=== PATIENT | male | born 1995 | race African-American/Black ===

== ENCOUNTER 2017-03-06 09:29 | Emergency (ER) | payer BC, MEDICAID ==
[2017-03-06 10:08] LABS: ABS Basophils 0.1 10^3/ul (0-0.2); ABS Eosinophils 0.1 10^3/ul (0-0.6); ABS Lymphocytes 3.5 10^3/ul (1.0-4.8); ABS Neutrophils 3.8 10^3/ul (1.5-7.7); ABS Nucleated RBC 0 10^3/ul; Eosinophil % 0.7 % (0-6); Hematocrit 42 % (42-52); Hemoglobin 14.7 g/dl (14.0-18.0); Lymphocyte % 41.7 % (25-47); Mean Corpuscular HGB Conc 35 g/dl (31-36); Mean Corpuscular Hemoglobin 32 pg (27-31); Mean Corpuscular Volume 91 fL (80-94); Mean Platelet Volume 9 um3 (7.4-10.4); Nucleated Red Blood Cells % 0.1; Platelet Count 271 10^3/ul (150-450); Red Blood Count 4.65 10^6/ul (4.0-5.4); Red Cell Distribution Width 12 % (10.5-15); White Blood Count 8.4 10^3/ul (3.5-10.8)
[2017-03-06 10:19] LABS: EGFR Non-African American 114.3 (>60)
[2017-03-06] MEDS ORDERED: Tenofovir/Emtricitabine(*) TAB PO ONE ×4 (10:51→10:56)
[2017-03-06] MEDS ORDERED: Raltegravir* 400 MG TAB PO ONE ×3 (10:53→10:58)
[2017-03-06 11:18] VITALS: BP 137/89
--- NOTE | 2017-03-06 16:53 | ED ---
Complex/Multi-Sys Presentation - HPI Summary HPI Summary: Patient presents to the ED with concern for HIV. He notes he had unprotected intercourse with a HIV + male early this morning around 4am. He states afterwards of which, the other individual stated he was HIV+. This was not to the knowledge of the patient previously. Denies any other complaints and is not c/o pain or penile discharge. There have been previous concerns for STD's and treated last year. He is concerned for std's of this date as well. Denies SOb, chest discomfort, N/V/C/D. Denies fevers, sweats or chills. Patient is otherwise healthy and takes no medications, has no allergies. He is requesting prophylaxis. - History Of Current Complaint Chief Complaint: EDGeneral Time Seen by Provider: 03/06/17 09:37 Hx Obtained From: Patient Onset/Duration: Sudden Onset Severity Currently: None Location: Negative - Allergies/Home Medications Allergies/Adverse Reactions: Allergies Allergy/AdvReac Type Severity Reaction Status Date / Time No Known Allergies Allergy Verified 12/25/15 15:17 PMH/Surg Hx/FS Hx/Imm Hx Previously Healthy: Yes - Cancer History Hx Radiation Therapy: No Hx Palliative Cancer Treatment: No - Surgical History Hx Anesthesia Reactions: No - Immunization History Hx Pertussis Vaccination: No Immunizations Up to Date: Unable to Obtain/Confirm Infectious Disease History: No Infectious Disease History: Denies: Traveled Outside the [place] in Last 30 Days - Family History Known Family History: Positive: Hypertension - Social History Occupation: Unemployed Lives: With Family Alcohol Use: Rare Hx Substance Use: No Substance Use Type: Reports: None Hx Tobacco Use: No Smoking Status (MU): Never Smoked Tobacco Review of Systems Constitutional: Negative Negative: Fever, Chills, Fatigue Eyes: Negative Cardiovascular: Negative Respiratory: Negative Gastrointestinal: Negative Positive: no symptoms reported, see HPI. Negative: burning, dysuria, discharge , frequency, incontinence, urgency Musculoskeletal: Negative Neurological: Negative All Other Systems Reviewed And Are Negative: Yes Physical Exam Triage Information Reviewed: Yes Vital Signs On Initial Exam: Initial Vitals Temp Pulse Resp BP Pulse Ox 98.0 F 88 16 149/90 100 03/06/17 09:30 03/06/17 09:30 03/06/17 09:30 03/06/17 09:30 03/06/17 09:30 Vital Signs Reviewed: Yes Appearance: Positive: No Pain Distress, Well-Nourished Skin: Positive: Warm, Skin Color Reflects Adequate Perfusion Head/Face: Positive: Normal Head/Face Inspection Eyes: Positive: EOMI, GENA, Conjunctiva Clear Neck: Positive: Supple, No Lymphadenopathy Respiratory/Lung Sounds: Positive: Clear to Auscultation, Breath Sounds Present Cardiovascular: Positive: Normal, RRR, Pulses are Symmetrical in both Upper and Lower Extremities Bowel Sounds: Positive: Present Neurological: Positive: Sensory/Motor Intact, Alert, Oriented to Person Place, Time Psychiatric: Positive: Normal, Affect/Mood Appropriate AVPU Assessment: Alert - Lilia Coma Scale Coma Scale Total: 15 Diagnostics - Vital Signs Vital Signs Temp Pulse Resp BP Pulse Ox 03/06/17 11:17 98.1 F 82 18 137/89 100 03/06/17 09:30 98.0 F 88 16 149/90 100 - Laboratory Lab Results: Lab Results 03/06/17 03/06/17 03/06/17 Range/Units 09:52 09:52 09:52 WBC 8.4 (3.5-10.8) 10^3/ul RBC 4.65 (4.0-5.4) 10^6/ul Hgb 14.7 (14.0-18.0) g/dl Hct 42 (42-52) % MCV 91 (80-94) fL MCH 32 H (27-31) pg MCHC 35 (31-36) g/dl RDW 12 (10.5-15) % Plt Count 271 (150-450) 10^3/ul MPV 9 (7.4-10.4) um3 Neut % (Auto) 45.0 (38-83) % Lymph % (Auto) 41.7 (25-47) % [place] % (Auto) 11.8 H (1-9) % Eos % (Auto) 0.7 (0-6) % Baso % (Auto) 0.8 (0-2) % Absolute Neuts (auto) 3.8 (1.5-7.7) 10^3/ul Absolute Lymphs (auto) 3.5 (1.0-4.8) 10^3/ul Absolute Monos (auto) 1.0 H (0-0.8) 10^3/ul Absolute Eos (auto) 0.1 (0-0.6) 10^3/ul Absolute Basos (auto) 0.1 (0-0.2) 10^3/ul Absolute Nucleated RBC 0 10^3/ul Nucleated RBC % 0.1 Sodium 136 (133-145) mmol/L Potassium 3.5 (3.5-5.0) mmol/L Chloride 102 (101-111) mmol/L Carbon Dioxide 27 (22-32) mmol/L Anion Gap 7 (2-11) mmol/L BUN 10 (6-24) mg/dL Creatinine 0.84 (0.67-1.17) mg/dL Est GFR ( Amer) 146.9 (>60) Est GFR (Non-Af Amer) 114.3 (>60) BUN/Creatinine Ratio 11.9 (8-20) Glucose 85 (70-100) mg/dL Calcium 9.3 (8.6-10.3) mg/dL Total Bilirubin 1.00 (0.2-1.0) mg/dL AST 34 (13-39) U/L ALT 39 (7-52) U/L Alkaline Phosphatase 83 (34-104) U/L Total Protein 7.7 (6.4-8.9) g/dL Albumin 4.2 (3.2-5.2) g/dL Globulin 3.5 (2-4) g/dL Albumin/Globulin Ratio 1.2 (1-3) Syphilis IgG Antibody Nonreactive (Nonreactive) Hepatitis B Antibody Nonreactive (Nonreactive) Hep Bs Antigen Reactive (prelim) H (Nonreactive) Hep Bs Antibody, Quant 3.48 (<12) mIU/mL Hepatitis C Antibody Nonreactive (Nonreactive) HIV 1&2 Antibody Nonreactive (Nonreactive) Result Diagrams: 03/06/17 09:52 03/06/17 09:52 Lab Statement: Any lab studies that have been ordered have been reviewed, and results considered in the medical decision making process. Complex Multi-Symp Course/Dx Course Of Treatment: Patient requests testing and anitviral prophylaxis after sexual intercourse with HIV + individual occurring 4 hours prior to arrival. Discussed treatment options. Discussed at length HIV prophylaxis and side effects, etc. Patient prefers prophylaxis and signs appropriate documentation. HIV, GC/Chlamydia, syphilis, hep b, hep obtained. CBC and CMP obtained and WNL with appropriate liver functions to give truvada and isentress based on clinical consultation centers PEP guidelines. He is given 7 day supply of both medications including the first doses of both in the ED. He is to follow up with Dr. Beckham in 3 weeks and referral is given. He is Ok with discharge and understands return precautions. Will call with other results of any + tests. - Diagnoses Provider Diagnoses: Encounter for HIV (human immunodeficiency virus) test Discharge - Discharge Plan Condition: Stable Disposition: HOME Patient Education Materials: Postexposure Prophylaxis (ED), HIV Infection (ED) Referrals: Georgina SILVER,Pepe Rodriguez [Medical Doctor] - No Primary Care Phys,NOPCP [Primary Care Provider] - Additional Instructions: Please follow up with Dr. Beckham in 3 weeks
== END 2017-03-06 11:17 | disposition home or self-care (01) ==
LOC: ED 09:29
DX: Z20.6 Contact with and (suspected) exposure to human immunodeficiency virus [HIV] (principal)
CPT/HCPCS: 36415; 80053; 85025; 86592; 86703; 86706; 86803; 87340; 87491; 87591; 99282

== ENCOUNTER 2017-07-04 11:25 | Emergency (ER) | payer BC, MEDICAID ==
[2017-07-04 12:47] VITALS: BP 142/81
--- NOTE | 2017-07-04 13:11 | UC ---
General HPI - HPI Summary HPI Summary: Pt presents stating feels chicken bone caught in esophagus. Pt states was eating chicken breast approx 3am and felt "it get stuck. pt has had previously but has always resolved. pt denies drooling, States feels it with breathing. Pt has vomited x 2 without relief. Pt had water and bread without relief. Pt without other complaints Pt's medications reviewed this visit - History of Current Complaint Chief Complaint: UCGeneralIllness Stated Complaint: THROAT COMPLAINT Time Seen by Provider: 07/04/17 12:54 Pain Intensity: 6 - Allergy/Home Medications Allergies/Adverse Reactions: Allergies Allergy/AdvReac Type Severity Reaction Status Date / Time No Known Allergies Allergy Verified 12/25/15 15:17 Home Medications: Home Medications NK [No Home Medications Reported] 07/04/17 [History Confirmed 07/04/17] PMH/Surg Hx/FS Hx/Imm Hx Previously Healthy: Yes - Surgical History Surgical History: None - Family History Known Family History: Positive: Hypertension, Diabetes - Social History Occupation: Employed Full-time Lives: With Family Alcohol Use: Rare Substance Use Type: None Smoking Status (MU): Never Smoked Tobacco Review of Systems Constitutional: Negative Skin: Negative Gastrointestinal: Other - sense esophageal FB All Other Systems Reviewed And Are Negative: Yes Physical Exam Triage Information Reviewed: Yes Appearance: Well-Appearing, No Pain Distress, Well-Nourished Vital Signs: Initial Vital Signs Temp 98.5 F 07/04/17 12:40 Pulse 74 07/04/17 12:40 Resp 21 07/04/17 12:40 BP 142/81 07/04/17 12:40 Pulse Ox 100 07/04/17 12:40 Vital Signs Reviewed: Yes Eye Exam: Normal Eyes: Positive: Conjunctiva Clear ENT: Positive: Pharynx normal, TMs normal, Other - Pt with mild discomfort with swallowing. No drooling, no posturing Dental Exam: Normal Neck exam: Normal Neck: Positive: Supple, Nontender, No Lymphadenopathy Respiratory Exam: Normal Respiratory: Positive: Chest non-tender, Lungs clear, Normal breath sounds, No respiratory distress, No accessory muscle use Cardiovascular Exam: Normal Cardiovascular: Positive: RRR, No Murmur, Pulses Normal Abdominal Exam: Normal Abdomen Description: Positive: Nontender, No Organomegaly, Soft Bowel Sounds: Positive: Present Musculoskeletal Exam: Normal Neurological Exam: Normal Neurological: Positive: Alert Psychological Exam: Normal Skin Exam: Normal Course/Dx - Course Course Of Treatment: Pt with discomfort swallowing. states felt chicken bone get lodge 3am today. Pt with pain with swallowing. no drooling. States feels with breathing, not SOB. d/w pt - will refer to ED for further eval. pt in agreement with plan. sple with ED at [facility] - pt prefereance - agreeable to pt, + GI information technology coordinator. pt to remain NPO - will self drive. Pt's BP mild elevated. pt uncomfortable. recommend f.u with pcp - Differential Dx - Multi-Symptom Provider Diagnoses: esophageal foreign body sensation without airway compromise Discharge - Sign-Out/Discharge Documenting (check all that apply): Discharge/Admit/Transfer - Discharge Plan Condition: Stable Disposition: HOME Patient Education Materials: Esophageal Foreign Body (ED) Referrals: No Primary Care Phys,NOPCP [Primary Care Provider] - Additional Instructions: The doctor that evaluated you at the urgent care center recommends you go to the emergency department for further evaluation of your medical condition. Do NOT eat or drink anything before you are evaluated at the emergency department. If your symptoms change, snout puller and call 911 for assistance - Billing Disposition and Condition Condition: STABLE Disposition: HOME
== END 2017-07-04 13:12 | disposition home or self-care (01) ==
LOC: UCCORT 11:25
DX: R09.89 Other specified symptoms and signs involving the circulatory and respiratory systems (principal)
CPT/HCPCS: 99212; G0463

== ENCOUNTER 2018-03-15 09:41 | Emergency (ER) | payer BC, MEDICAID ==
--- NOTE | 2018-03-15 09:57 | UC ---
Complaint Male HPI - HPI Summary HPI Summary: 22 yo male presents with burning during urination. He tells me that he has been sexually active with new male partners recently without the use of protective methods. He is currently being treated with truvada and undergoing blood draws for HIV and other STDs due to a previous potential exposure. He last had intercourse about 2 weeks ago and over the last 4-5 days has noticed burning during urination. That partner has not contacted pt to say they have any dz. Pt has had gonorrhea in the past and says that this feels similar. Denies fever, chills, abdominal pain, n/v, hematuria, lesions, testicular pain. - History of Current Complaint Stated Complaint: PERSONAL Time Seen by Provider: 03/15/18 09:57 Hx Obtained From: Patient Onset/Duration: Gradual Onset Severity Initially: Mild Severity Currently: Mild Pain Intensity: 1 Pain Scale Used: 0-10 Numeric - Allergies/Home Medications Allergies/Adverse Reactions: Allergies Allergy/AdvReac Type Severity Reaction Status Date / Time No Known Allergies Allergy Verified 12/25/15 15:17 Home Medications: Home Medications Emtricitabine/Tenofovir (Tdf) [Truvada 200-300 mg] 1 tab PO DAILY 03/15/18 [ History Confirmed 03/15/18] PMH/Surg Hx/FS Hx/Imm Hx - Additional Past Medical History Additional PMH: None - Surgical History Surgical History: None - Family History Known Family History: Positive: Hypertension, Diabetes - Social History Occupation: Student Lives: With Family Alcohol Use: Rare Substance Use Type: None Smoking Status (MU): Never Smoked Tobacco Review of Systems All Other Systems Reviewed And Are Negative: Yes Constitutional: Positive: Negative Skin: Positive: Negative Respiratory: Positive: Negative Cardiovascular: Positive: Negative Genitourinary: Positive: Vaginal/Penile Burning. Negative: Vaginal/Penile Discharge, Vaginal/Penile Pain, Ulceration/Lesion Neurological: Positive: Negative Psychological: Positive: Negative Physical Exam - Summary Physical Exam Summary: GENERAL: NAD. WDWN. No pain distress. SKIN: No rashes, sores, lesions, or open wounds. NECK: Supple. Nontender. No lymphadenopathy. CHEST: No accessory muscle use. Breathing comfortably and in no distress. CV: Pulses intact. Cap refill <2seconds ABDOMEN: Soft. NTTP. No CVA tenderness. Bowel sounds present NEURO: Alert. PSYCH: Age appropriate behavior. Triage Information Reviewed: Yes Vital Signs: Vital Signs: Temp Pulse Resp BP Pulse Ox 98.1 F 92 18 137/76 99 03/15/18 10:11 03/15/18 10:11 03/15/18 10:11 03/15/18 10:11 03/15/18 10:11 Vital Signs Reviewed: Yes Complaint Male Course/Dx - Course Course Of Treatment: Pt declined genital exam as he is only having burning with urination. Urine will be sent for GC/C. He was treated with ceftriaxone and azithromycin today. - Differential Dx/Diagnosis Provider Diagnosis: Burning with urination Discharge - Sign-Out/Discharge Documenting (check all that apply): Patient Departure All imaging exams completed and their final reports reviewed: No Studies - Discharge Plan Condition: Stable Disposition: HOME Patient Education Materials: Chlamydia (ED), Sexually Transmitted Diseases (ED) , Gonorrhea (ED) Referrals: No Primary Care Phys,NOPCP [Primary Care Provider] - Additional Instructions: If you develop a fever, shortness of breath, chest pain, new or worsening symptoms - please call your PCP or go to the ED. Your results should be back in 1-3 days, please call to ask if you have not heard from us. You were treated for Gonorrhea and Chlamydia today. - Billing Disposition and Condition Condition: STABLE Disposition: Home - Attestation Statements Provider Attestation: I was available for consult. This patient was seen by the [facility]. The patient was not presented to, seen by, or examined by me. -Jairo
[2018-03-15 10:18] VITALS: BP 137/76
[2018-03-15] MEDS ORDERED: Lidocaine 1%* 5 ML VIAL INJ ONE (10:38)
[2018-03-15] MEDS ORDERED: cefTRIAXone VIAL(*) 250 MG VIAL IM ONE (10:38)
[2018-03-15] MEDS ORDERED: Azithromycin TAB* 250 MG PO ONE (10:38)
== END 2018-03-15 11:02 | disposition home or self-care (01) ==
LOC: UCEAST 09:41
DX: R30.9 Painful micturition, unspecified (principal)
CPT/HCPCS: 87491; 87591; 96372; 99211; A9270-GY; G0463; J0696

== ENCOUNTER 2018-10-31 13:21 | Emergency (ER) | payer BC, MEDICAID ==
[2018-10-31 13:29] VITALS: BP 147/70
--- NOTE | 2018-10-31 13:30 | UC ---
Complaint Male HPI - HPI Summary HPI Summary: 23 yo male presents requesting STD testing. He states that he has no symptoms, but just wants to get "checked" as it has been about 6 months and he has been sexually active. Denies fevers, chills, weight loss, abdominal pain, dysuria, penile drainage, genital lesions, testicular pain. - History of Current Complaint Chief Complaint: UCSTDScreening Stated Complaint: STD TESTING Time Seen by Provider: 10/31/18 13:29 Hx Obtained From: Patient Severity Currently: None Pain Intensity: 0 - Allergies/Home Medications Allergies/Adverse Reactions: Allergies Allergy/AdvReac Type Severity Reaction Status Date / Time No Known Allergies Allergy Verified 10/31/18 13:29 PMH/Surg Hx/FS Hx/Imm Hx - Additional Past Medical History Additional PMH: None - Surgical History Surgical History: None - Family History Known Family History: Positive: Hypertension, Diabetes - Social History Lives: With Family Alcohol Use: Rare Substance Use Type: None Smoking Status (MU): Never Smoked Tobacco - Immunization History Most Recent Tetanus Shot: unsure Review of Systems All Other Systems Reviewed And Are Negative: No Constitutional: Positive: Negative Skin: Positive: Negative Respiratory: Positive: Negative Cardiovascular: Positive: Negative Gastrointestinal: Positive: Negative Genitourinary: Positive: Negative Neurological: Positive: Negative Psychological: Positive: Negative Physical Exam - Summary Physical Exam Summary: GENERAL: NAD. WDWN. No pain distress. SKIN: No rashes, opens wounds, or sores. NECK: Supple. Nontender. No lymphadenopathy. CHEST: No accessory muscle use. Breathing comfortably and in no distress. CV: Pulses intact. Cap refill <2seconds NEURO: Alert. PSYCH: Age appropriate behavior. Triage Information Reviewed: Yes Vital Signs: Initial Vital Signs Temp 98 F 10/31/18 13:27 Pulse 86 10/31/18 13:27 Resp 16 10/31/18 13:27 BP 147/70 10/31/18 13:27 Pulse Ox 100 10/31/18 13:27 Vital Signs Reviewed: Yes Complaint Male Course/Dx - Course Course Of Treatment: He declined genital exam today as he is having no symptoms. GC/C urine will be sent. Labs for HIV, Herpes, RPR, and hepatitis drawn today and will f/u with results and treat as indicated. - Differential Dx/Diagnosis Provider Diagnosis: Screen for STD (sexually transmitted disease) Discharge ED - Sign-Out/Discharge Documenting (check all that apply): Patient Departure All imaging exams completed and their final reports reviewed: No Studies - Discharge Plan Condition: Stable Disposition: HOME Patient Education Materials: Sexually Transmitted Diseases (ED) Referrals: No Primary Care Phys,NOPCP [Primary Care Provider] - Additional Instructions: If you develop a fever, shortness of breath, chest pain, new or worsening symptoms - please call your PCP or go to the ED immediately. Your blood pressure was slightly elevated at todays visit. Please see your primary provider within 4 weeks for recheck and re-evaluation. Your results should be back in 2-3 days - please call to ask about your results if you have not heard from our clinic. - Billing Disposition and Condition Condition: STABLE Disposition: Home - Attestation Statements Provider Attestation: Per institutional requirements, I have reviewed the chart, however, I was not consulted specifically or made aware of this patient by the midlevel provider. I did not personally evaluate, interact with , or disposition this patient.
[2018-10-31 18:48] LABS: Hepatitis B Surface Antigen Negative (Negative)
[2018-10-31 19:05] LABS: Hepatitis C Antibody Negative (Negative)
[2018-10-31 19:08] LABS: HIV 4th Generation Nonreactive (Nonreactive)
[2018-11-01 13:07] LABS: Chlamydia trachomatis NAA Negative (Negative); Neisseria gonorrhoeae (GC) NAA Negative (Negative)
[2018-11-02 10:51] LABS: Herpes Simplex Virus I IgG AB Positive (Negative); Herpes Simplex Virus II IgG AB Negative (Negative)
--- NOTE | 2018-11-03 07:35 | UC ---
- Progress Note Progress Note: HSV results come back from October 31, 2018. 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 HSV 2 IgG was negative. All the rest of the labs that were done were negative. Nursing to call patient inform the patient of the results and to follow-up with primary care physician as a any outbreaks of HSV-1 there is medical treatment available. Course/Dx - Diagnoses Provider Diagnoses: Screen for STD (sexually transmitted disease) Discharge ED - Sign-Out/Discharge Documenting (check all that apply): Patient Departure All imaging exams completed and their final reports reviewed: No Studies - Discharge Plan Condition: Stable Disposition: HOME Patient Education Materials: Sexually Transmitted Diseases (ED) Referrals: No Primary Care Phys,NOPCP [Primary Care Provider] - Additional Instructions: If you develop a fever, shortness of breath, chest pain, new or worsening symptoms - please call your PCP or go to the ED immediately. Your blood pressure was slightly elevated at todays visit. Please see your primary provider within 4 weeks for recheck and re-evaluation. Your results should be back in 2-3 days - please call to ask about your results if you have not heard from our clinic. - Billing Disposition and Condition Condition: STABLE Disposition: Home
== END 2018-10-31 13:54 | disposition home or self-care (01) ==
LOC: UCEAST 13:21
DX: Z20.2 Contact with and (suspected) exposure to infections with a predominantly sexual mode of transmission (principal)
CPT/HCPCS: 36415; 80074; 86695; 86696; 86780; 87389; 87491; 87591; 99211; G0463

== ENCOUNTER 2019-05-23 11:51 | Emergency (ER) | payer BC, MEDICAID ==
[2019-05-23 13:03] VITALS: BP 135/91
--- NOTE | 2019-05-23 13:11 | UC ---
General HPI - HPI Summary HPI Summary: PATIENT ARRIVES REQUESTING ROUTINE STD TESTING. HE DENIES ANY SYMPTOMS. NO PENILE DISCHARGE, NO ABDOMINAL PAIN, NO NAUSEA, NO FEVER, NO URINARY SYMPTOMS. PATIENT HAS SEX WITH MEN AND IS ON TRUVADA FOR PREP. HE STATES HE HAS HAD UNPROTECTED SEX WITH ONE MALE PARTNER, MOST RECENTLY ABOUT 2 MONTHS AGO. STATES HE LIKES TO GET CHECKED EVERY 6 MONTHS OR SO. - History of Current Complaint Chief Complaint: UCSTDScreening Stated Complaint: PERSONAL Time Seen by Provider: 05/23/19 12:27 Hx Obtained From: Patient Current Severity: None Pain Intensity: 0 Associated Signs & Symptoms: Negative: Abdominal Pain, Dysuria, Fever, Nausea - Allergy/Home Medications Allergies/Adverse Reactions: Allergies Allergy/AdvReac Type Severity Reaction Status Date / Time No Known Allergies Allergy Verified 05/23/19 12:38 Home Medications: Home Medications Emtricitabine/Tenofovir (Tdf) [Truvada 200 mg-300 mg Tablet] 1 tab PO DAILY [History Confirmed 05/23/19] PMH/Surg Hx/FS Hx/Imm Hx Previously Healthy: Yes - Surgical History Surgical History: None - Family History Known Family History: Positive: Hypertension, Diabetes - Social History Alcohol Use: None Substance Use Type: None Smoking Status (MU): Never Smoked Tobacco - Immunization History Most Recent Tetanus Shot: unsure Review of Systems All Other Systems Reviewed And Are Negative: Yes Constitutional: Positive: Negative Skin: Positive: Negative Respiratory: Positive: Negative Cardiovascular: Positive: Negative Gastrointestinal: Positive: Negative Genitourinary: Positive: Negative Physical Exam Triage Information Reviewed: Yes Appearance: Well-Appearing, No Pain Distress, Well-Nourished Vital Signs: Initial Vital Signs Temp 98.1 F 05/23/19 12:38 Pulse 85 05/23/19 12:38 Resp 18 05/23/19 12:38 BP 135/91 05/23/19 12:38 Pulse Ox 96 05/23/19 12:38 Vital Signs Reviewed: Yes Eyes: Positive: Conjunctiva Clear ENT: Positive: Hearing grossly normal Neck: Positive: Supple Respiratory: Positive: No respiratory distress, No accessory muscle use Musculoskeletal: Positive: ROM Intact Neurological: Positive: Alert Psychological: Positive: Age Appropriate Behavior Course/Dx - Course Course Of Treatment: ASYMPTOMATIC PATIENT HERE REQUESTING STD TESTING. BLOOD DRAWN FOR HIV, SYPHILIS AND ACUTE HEPATITIS PANEL. URINE TESTED FOR GONORRHEA AND CHLAMYDIA. INFORMATION FOR [facility] PROVIDED. - Diagnoses Provider Diagnosis: Screen for STD (sexually transmitted disease) Discharge ED - Sign-Out/Discharge Documenting (check all that apply): Patient Departure All imaging exams completed and their final reports reviewed: No Studies - Discharge Plan Condition: Stable Disposition: HOME Patient Education Materials: Sexually Transmitted Diseases (ED), Safe Sex (ED) Referrals: [facility] [Outside] - If Needed Additional Instructions: BLOOD DRAWN FOR HIV, SYPHILIS, HEPATITIS TODAY. URINE SENT FOR GONORRHEA AND CHLAMYDIA. WE WILL CALL YOU WITH ANY ABNORMAL RESULTS. I RECOMMEND YOU PRACTICE SAFER SEX TO HELP REDUCE YOUR RISK OF BARRY ANY STD. [facility] [place] Address: [address] [place] [address] CALL THE NUMBER BELOW FOR ASSISTANCE IN ESTABLISHING WITH A PCP An additional resource available to assist in finding the appropriate physician for your health care needs is the [facility] ([facility]). You may contact them by calling [phone]. - Billing Disposition and Condition Condition: STABLE Disposition: Home
[2019-05-24 13:46] LABS: Chlamydia trachomatis NAA Negative (Negative); Neisseria gonorrhoeae (GC) NAA Negative (Negative)
== END 2019-05-23 14:00 | disposition home or self-care (01) ==
LOC: UCEAST 11:51
DX: Z11.3 Encounter for screening for infections with a predominantly sexual mode of transmission (principal)
CPT/HCPCS: 87491; 87591; 99211; G0463